=== PATIENT | male | born 1970 | race African-American/Black ===

== ENCOUNTER 2017-06-03 12:28 | Inpatient (IN) ==
[2017-06-03] MEDS ORDERED: ONDANSETRON 4 MG/2 ML VIAL IV STA (13:20)
[2017-06-03] MEDS ORDERED: SODIUM CHLORIDE 0.9% 1,000 ML IV STA (13:20)
[2017-06-03] MEDS ORDERED: ONDANSETRON 4 MG/2 ML VIAL ONE (13:27)
--- NOTE | 2017-06-03 13:30 | Emergency Department Note ---
Syd Cunningham Manpreet, am scribing for, and in the presence of, Naomie Ovalle DO 13: 24. Vasquez Cunningham Debra, DO, personally performed the services described in this documentation, ascribed by Scott Velarde in my presence, and it is both accurate and complete 329 . Arrival - Arrival Chief Complaint: Nausea/Vomiting/Diarrhea Stated Complaint: No BM. N/V. No food/liquid intake ED Nursing Triage Note: pt ambulatory to triage with c/o having n/v abd pain and constipation with dizziness/weakness. pt states onset was sunday. pt states last bm was sunday. pt states he hasnt been able to keep any fluids or food down. Mode of Arrival: Ambulatory Limitations: No Limitations Source: Patient Time Seen by Provider: 06/03/17 13:03 - History of Present Illness HPI Narrative: Pt is a 46 y/o male who presents to the ED with CC of N/V with constipation since 05/29/17. pt states he is unable to keep any liquids down since Sunday () and has been feeling weak and light headed. Pt also has not had any BM' s. Pt has tried OTC for the symptoms with no relief. Pt states "he feels like there is a lump in his throat and stomach." Pt denies any fever or chills. Pt does not have a PCP. No other pains/complaints reported to the ED. Onset (ago): day(s) (05/29/17) Consistency: constant, intermittent Severity: moderate Allergies/Adverse Reactions: Allergies Allergy/AdvReac Type Severity Reaction Status Date / Time No Known Allergies Allergy Unverified 06/03/17 12:50 Review of System - Review of System 12 point system: reviewed and no additional remarkable complaints except as stated - Review of System Constitutional: Present: weakness, other (Dizziness). Absent: chills, diaphoresis, fever Head/Ears/Nose/Throat: Absent: sore throat Respiratory: Absent: cough, respiratory distress, wheezing Cardiovascular: Absent: chest pain Gastrointestinal: Present: abdominal pain, nausea, vomiting, constipation Genitourinary male: Absent: dysuria Musculoskeletal: Absent: back pain, neck pain Neurological: Absent: headache, weakness Medical,Surgical,& Family Hx - Social History Smoking Status: Current every day smoker Frequency of Alcohol Use: None Type of Drug Use: None Exam Vital Signs: Vital Signs Temperature 98.2 F 06/03/17 12:56 Pulse Rate 71 06/03/17 14:00 Respiratory Rate 18 06/03/17 14:00 Blood Pressure 143/90 06/03/17 14:00 O2 Sat by Pulse Oximetry 100 06/03/17 14:00 - General General appearance: alert, other (Hiccups during exam) - Head Head exam: Present: atraumatic, normocephalic, normal inspection - Eye Eye exam: Present: normal appearance, PERRL, EOMI - ENT ENT exam: Present: normal exam, normal oropharynx, mucous membranes dry, TM's normal bilaterally - Neck Neck exam: Present: normal inspection, full ROM, trachea midline. Absent: tenderness - Chest Chest inspection: Present: normal inspection, symmetric chest wall rise. Absent : tenderness - Respiratory Respiratory exam: Present: normal lung sounds bilaterally. Absent: accessory muscle use, respiratory distress - Cardiovascular Cardiovascular exam: Present: regular rate, normal rhythm, normal heart sounds. Absent: murmur, rubs - Abdominal Exam Abdominal exam: Present: soft, normal bowel sounds. Absent: distention, tenderness, guarding, rebound - Extremities Exam Extremities exam: Present: normal inspection, full ROM. Absent: tenderness - Back Exam Back exam: Present: normal inspection, full ROM. Absent: tenderness - Neurological Exam Neurological exam: Present: alert, oriented X3, CN II-XII intact, reflexes normal - Psychiatric Psychiatric exam: Present: normal affect, normal mood - Skin Skin exam: Present: warm, dry, intact, normal color. Absent: pallor Course Course Narrative: Spoke with hospitalist regarding patient's sodium being 121. Patient has not tolerated any food or liquids since Sunday. Patient has 5 ketones in urine. Will admit for rehydration and antinausea medicine. Patient stable at this time Results - Labs CBC & BMP: 06/03/17 13:26 06/03/17 13:26 Lab Results: I have reviewed the patients labs Labs: Laboratory Tests 06/03/17 06/03/17 06/03/17 13:26 13:26 13:26 WBC 8.8 RBC 5.74 H Hgb 18.1 H Hct 48.9 MCV 85.2 L MCH 32 MCHC 37.0 H RDW 12.0 Plt Count 250 MPV 10.7 Neut % (Auto) 62.7 Lymph % (Auto) 21.8 [place] % (Auto) 13.9 H Eos % (Auto) 0.9 Baso % (Auto) 0.2 Neut # (Auto) 5.5 Lymph # (Auto) 1.9 [place] # (Auto) 1.2 H Eos # (Auto) 0.1 Baso # (Auto) 0.0 Immature Gran % 0.5 Nucleated RBC % 0.0 Immature Gran # 0.04 Nucleated RBCs # 0.00 Immature Plt Fraction 0.0 Sodium 121 L Potassium 3.5 Chloride 81 L Carbon Dioxide 33 H Anion Gap 10.5 BUN 27 H Creatinine 1.20 GFR Calculation 103 BUN/Creatinine Ratio 22.00 H Glucose 104 Calculated Osmolality 248.1 L Calcium 9.7 Total Bilirubin 1.20 H AST 18 ALT 17 Alkaline Phosphatase 91 Total Protein 8.7 H Albumin 4.3 Globulin 4.4 H Albumin/Globulin Ratio 0.9 L Lipase 179.0 Urine Color Yellow Urine Appearance Clear Urine pH 7.0 Ur Specific [place] 1.015 Urine Protein 30 Urine Glucose (UA) Negative Urine Ketones 5 Urine Blood Small Urine Nitrate Negative Urine Bilirubin Negative Urine Urobilinogen < 2.0 H Urine Leukocytes Negative Urine RBC 1 Urine WBC 3 Ur Squamous Epith Cells Occasional Urine Mucus Occasional Ur Culture Indicated? Not indicated Urine Opiates Screen Ur Barbiturates Screen Ur Phencyclidine Scrn U Amphetamine/Methamph U Benzodiazepines Scrn U Cocaine Metab Screen U Cannabinoids Screen 06/03/17 13:26 WBC RBC Hgb Hct MCV MCH MCHC RDW Plt Count MPV Neut % (Auto) Lymph % (Auto) [place] % (Auto) Eos % (Auto) Baso % (Auto) Neut # (Auto) Lymph # (Auto) [place] # (Auto) Eos # (Auto) Baso # (Auto) Immature Gran % Nucleated RBC % Immature Gran # Nucleated RBCs # Immature Plt Fraction Sodium Potassium Chloride Carbon Dioxide Anion Gap BUN Creatinine GFR Calculation BUN/Creatinine Ratio Glucose Calculated Osmolality Calcium Total Bilirubin AST ALT Alkaline Phosphatase Total Protein Albumin Globulin Albumin/Globulin Ratio Lipase Urine Color Urine Appearance Urine pH Ur Specific [place] Urine Protein Urine Glucose (UA) Urine Ketones Urine Blood Urine Nitrate Urine Bilirubin Urine Urobilinogen Urine Leukocytes Urine RBC Urine WBC Ur Squamous Epith Cells Urine Mucus Ur Culture Indicated? Urine Opiates Screen Negative Ur Barbiturates Screen Negative Ur Phencyclidine Scrn Negative U Amphetamine/Methamph Negative U Benzodiazepines Scrn Negative U Cocaine Metab Screen Negative U Cannabinoids Screen Positive H
[2017-06-03 13:43] LABS: Eosinophils # 0.1 10*3/uL (0.0-0.87); Eosinophils % 0.9 % (0.00-10.9); Mean Corpuscular Volume 85.2 FL (87-102)
[2017-06-03 14:01] LABS: Albumin 4.3 G/DL (3.4-5.0); Basophils % 0.2 % (0.0-0.8); Bilirubin,Total 1.2 MG/DL (0.2-1.0); Calcium 9.7 MG/DL (8.5-10.1); Hematocrit 48.9 VOL% (42.0-52.0); Immature Granulocytes % 0.5 %; Immature Granulocytes Absolute 0.04 #; Lymphocytes # 1.9 10*3/uL (1.4-4.0); Lymphocytes % 21.8 % (21.2-54.2); Mean Corpuscular Hemoglobin 32 PG (27-34); Mean Platelet Volume 10.7 FL (9.6-12.0); Monocytes # 1.2 10*3/uL (0.11-0.8); Monocytes % 13.9 % (1.7-12.7); Neutrophils # 5.5 10*3/uL (1.4-7.4); Neutrophils % 62.7 % (38.7-73.9); Osmolality,Calculated 248.1 MOS/KG (273-304); Platelet Count 250 T/CUMM (130-400); Potassium 3.5 MMOL/L (3.5-5.1); Red Blood Count 5.74 MC/CUMM (3.8-5.5); Total Protein 8.7 G/DL (6.4-8.3); White Blood Count 8.8 T/CUMM (4-12)
[2017-06-03 14:02] LABS: Apearance,Urine CLEAR (Clear); Bilirubin,Urine Negative (Negative); Blood, Urine Small mg/dL (Negative); Glucose,Urine (UA) Negative (Negative); Ketones,Urine 5 mg/dL (Negative); Mucus,Urine Occasional /LPF (Occasional); Nitrite,Urine Negative (Negative); Protein,Urine 30 MG/DL; RBC,Urine 1 /HPF (0-4); Squamous Epithelial Cell,Urine Occasional /HPF (0-10); Urine Color Yellow (Yellow); Urine Specific Gravity 1.015 (1.001-1.035); Urine Urobilinogen < 2.0 EU/DL (0.2-1.0); WBC,Urine 3 /HPF (0-6)
[2017-06-03 14:04] LABS: Hemoglobin 18.1 GM/DL (14.0-18.0)
[2017-06-03 14:11] LABS: Barbiturates Screen,Urine Negative (Negative); Benzodiazepines Screen,Urine Negative (Negative); Cannabinoid Screen,Urine Positive (Negative); Opiate Screen,Urine Negative (Negative); Phencyclidine Screen,Urine Negative (Negative)
[2017-06-03] MEDS ORDERED: METOCLOPRAMIDE 10 MG/2 ML VIAL IV STA (14:11)
[2017-06-03] MEDS ORDERED: METOCLOPRAMIDE 10 MG/2 ML VIAL ONE (14:21)
--- NOTE | 2017-06-03 15:31 | Hospitalist History & Physical ---
Assessment and Plan (1) Hyponatremia Status: Acute Assessment and plan: Na 121. Admit to med surg. Stat EKG. NS @ 150 ml/hr. Cardiac monitoring/neuro checks. Routine vitals. Recheck labs in am. Urine studies Current Visit: Yes History of Present Illness Chief complaint: Nausea/vomiting History of present illness: Mr. Heller is a 46 year old black male with no known medical history that presented to the ED today for further evaluation of nausea and vomiting. Pt.'s family present at the bedside. Patient states that he has had continuous nausea and vomiting since Sunday. Patient states that he has not been since Sunday. Patient denies chest pain, fever, or diarrhea. Patient does report shortness of breath on exertion, lightheadedness, blurred vision (since yesterday), and mild abdominal pain. He also reports "just not feeling right". Pt. states that on Sunday he did consume marijuana but he doesn't recall if the symptoms started before or after consumption. Pt. also states he tried some chicken from a local gas station. Pt. denies any other symptoms in the ED at this time. Labs taken in the ED revealed a NA of 121, bun 27, creatinine 1.20. Pt. will be admitted for further evaluation and treatment. Allergies Allergy/AdvReac Type Severity Reaction Status Date / Time No Known Allergies Allergy Unverified 06/03/17 12:50 Medical,Surgical,& Family Hx - Social History Smoking Status: Current every day smoker Frequency of Alcohol Use: None Type of Drug Use: None Marital Status: Single Lives With:: Parent Functional capacity: independent ambulation - Constitutional Constitutional: Present: chills. Absent: fever(s), night sweats - EENT Eyes: Present: blurry vision Ears: Absent: decreased hearing Nose, mouth and throat: Absent: headache(s) - Cardiovascular Cardiovascular: Present: dyspnea on exertion. Absent: chest pain at rest, edema - Respiratory Respiratory: Absent: cough - Gastrointestinal Gastrointestinal: Present: abdominal pain, nausea, vomiting - Genitourinary Genitourinary: Absent: difficulty urinating - Musculoskeletal Musculoskeletal: Absent: back pain - Neurological Neurological: Present: dizziness. Absent: confusion - Hematologic/Lymphatic Hematologic/Lymphatic: Absent: easy bleeding Exam - Constitutional Vitals: Period Temp Pulse Resp BP Sys/[place]atum Pulse Ox Last 24 Hr 98.2 F-98.2 F 71-96 16-18 102-147/77-102 99-100 General appearance: normal weight, no acute distress - Head Head exam: Present: normal inspection, normocephalic - Eye Eye exam: Present: EOMI. Absent: scleral icterus Pupils: Present: ERIKA - Respiratory Respiratory exam: Present: clear to auscultation bilaterally. Absent: wheezes - Cardiovascular Cardiovascular exam: Present: tachycardia - GI/Abdominal GI/Abdominal exam: Present: normal bowel sounds, soft. Absent: tenderness - Extremities Exam Extremities exam: Present: normal capillary refill, full ROM, edema - Neurological Exam Neurological exam: Present: alert, oriented X3 - Psychiatric Psychiatric exam: Present: normal affect, normal mood - Skin Skin exam: Present: normal color, warm, dry Results - Labs CBC & BMP: 06/03/17 13:26 06/03/17 13:26 Lab Results: I have reviewed the past 24 hour labs
[2017-06-03] MEDS ORDERED: ACETAMINOPHEN 325 MG TABLET PO PRN (16:02)
[2017-06-03] MEDS ORDERED: ONDANSETRON 4 MG/2 ML VIAL IV PRN (16:02)
--- NOTE | 2017-06-03 16:24 | EKG Report ---
Stationary ECG Study [facility] Test Date: 06/03/2017 4:25:27 PM Pat Name: LIAN MCKEON Department: Room: 426 Gender: M Certified Diabetes Educator: RENATE : 1970 Requested by: Rocco Schuster Order Number: [id number] Reading MD: ROBERTO PEDERSON Intervals [place] Rate: 67 P: 85 [place]: 133 QRS: 81 QRSD: 94 T: 57 QT: 415 QTc: 430 Interpretive Statements SINUS RHYTHM RIGHT ATRIAL ENLARGEMENT Electronically Signed On 06-04-17 13:36:15 CDT by ROBERTO PEDERSON [email or web address]
[2017-06-03] MEDS: SODIUM CHLORIDE 0.9% 1,000 ML IV SCH ×2 (16:41→23:01)
[2017-06-03] MEDS: ENOXAPARIN 40 MG/0.4 ML SYRINGE SUBCUT SCH (16:41)
--- NOTE | 2017-06-03 17:18 | XRay Report ---
Exam: XR KUB Date: 06/03/2017 4:47 PM Indication: Nausea and vomiting Comparison: None Technical: 2 views Findings: Lung bases unremarkable. The liver shadow is intact The spleen and renal shadows are partially obscured. Moderate fecal debris in the right colon. Vascular plaque present in the iliac vessels. Nonspecific GI pattern otherwise noted without pneumoperitoneum Bony structures are intact Impression: 1.Moderate fecal debris right colon 2.Vascular calcifications PROCEDURE INTERPRETED AT [facility] DEPARTMENT OF RADIOLOGY Final Report Signed by: Dr. Bertram Valerio
[2017-06-04 05:57] LABS: Basophils % 0.1 % (0.0-0.8); Eosinophils # 0.1 10*3/uL (0.0-0.87); Hematocrit 42.8 VOL% (42.0-52.0); Immature Granulocytes % 0.3 %; Immature Granulocytes Absolute 0.02 #; Lymphocytes # 2.5 10*3/uL (1.4-4.0); Lymphocytes % 32.3 % (21.2-54.2); Mean Corpuscular HGB Conc 35.5 GM/DL (32-36); Mean Corpuscular Hemoglobin 31 PG (27-34); Mean Corpuscular Volume 87.9 FL (87-102); Mean Platelet Volume 10.6 FL (9.6-12.0); Monocytes # 1.3 10*3/uL (0.11-0.8); Neutrophils # 3.9 10*3/uL (1.4-7.4); Neutrophils % 50.3 % (38.7-73.9); Platelet Count 207 T/CUMM (130-400); Red Blood Count 4.87 MC/CUMM (3.8-5.5); White Blood Count 7.8 T/CUMM (4-12)
[2017-06-04 06:09] LABS: Hemoglobin 15.2 GM/DL (14.0-18.0)
[2017-06-04 06:23] LABS: Eosinophils 1 % (0-10); Giant Platelets Few; Hypochromasia 1+; Lymphocytes 35 % (20-55); Ovalocytes Slight; Platelet Estimate Adequate; Segmented Neutrophils 45 % (50-85); Total Cells Counted 100
[2017-06-04 06:40] LABS: Calcium 8.3 MG/DL (8.5-10.1); Osmolality,Calculated 255.2 MOS/KG (273-304); Potassium 3.9 MMOL/L (3.5-5.1); Risk Ratio 6.8; Thyroid Stimulating Hormone 1.78 uIU/ml (0.358-3.74); VLDL CHOLESTEROL 14.6 MG/DL
[2017-06-04] MEDS: SODIUM CHLORIDE 0.9% 1,000 ML IV SCH ×4 (07:38→20:00)
[2017-06-04] MEDS: PANTOPRAZOLE 40 MG TABLET PO SCH (08:18)
[2017-06-04] MEDS: DOCUSATE SODIUM 100 MG CAPSULE PO SCH ×2 (10:55→20:21)
[2017-06-04] MEDS: LACTULOSE 20 GM/30 ML UDCUP PO SCH ×2 (15:21→20:21)
[2017-06-04] MEDS: ENOXAPARIN 40 MG/0.4 ML SYRINGE SUBCUT SCH (15:21)
--- NOTE | 2017-06-04 16:02 | Hospitalist Progress Note ---
Hospitalist: Subjective Interval history: 46-year-old -[place] male admitted with dehydration hyponatremia as well as severe constipation. Still has constipation. Exam - Constitutional Vitals: Period Temp Pulse Resp BP Sys/[place]atum Pulse Ox Last 24 Hr 97.4 F-99.3 F 65-70 16-20 134-149/75-91 97-100 Exam: General: No Acute Distress HEENT: Normocephalic, atraumatic, Extra ocular movements intact Neck: Supple, No JVD Chest: Clear to auscultation B/L CV: S1 + S2 audible without murmur, gallop or rub Abd: soft, NT, Non-distended, BS + Ext: No edema Skin: No purpura, bruising or rash Rheumatologic: No Joint deformities Neurologic: Strength 5/5 all extremities, no gross sensory deficits Results - Labs CBC & BMP: 06/04/17 04:55 06/04/17 04:55 - Impressions Assessment and Plan: Hyponatremia Status: Acute Assessment and plan: This was due to dehydration, improved with normal saline, continue to monitor sodium level Current Visit: Yes Severe constipation Status: Acute Assessment and plan: He has been started on bowel regimen, monitor for response. If no response will consider an enema. Current Visit: Yes Nausea and vomiting Status: Acute Assessment and plan: It was likely from gastritis with constipation contributing. This has resolved and he has been started on diet Current Visit: Yes
[2017-06-04] MEDS: POLYETHYLENE GLYCOL POWDER 17 GM PACK PO SCH (20:20)
[2017-06-05] MEDS: SODIUM CHLORIDE 0.9% 1,000 ML IV SCH ×2 (02:43→08:26)
[2017-06-05 07:06] LABS: Basophils % 0.6 % (0.0-0.8); Eosinophils # 0.1 10*3/uL (0.0-0.87); Eosinophils % 1.9 % (0.00-10.9); Hematocrit 40.7 VOL% (42.0-52.0); Hemoglobin 14.3 GM/DL (14.0-18.0); Immature Granulocytes % 0.3 %; Immature Granulocytes Absolute 0.02 #; Lymphocytes # 2.6 10*3/uL (1.4-4.0); Lymphocytes % 40.9 % (21.2-54.2); Mean Corpuscular HGB Conc 35.1 GM/DL (32-36); Mean Corpuscular Hemoglobin 32 PG (27-34); Mean Corpuscular Volume 90.6 FL (87-102); Mean Platelet Volume 10.2 FL (9.6-12.0); Monocytes # 0.8 10*3/uL (0.11-0.8); Monocytes % 11.8 % (1.7-12.7); Neutrophils # 2.8 10*3/uL (1.4-7.4); Neutrophils % 44.5 % (38.7-73.9); Platelet Count 192 T/CUMM (130-400); Red Blood Count 4.49 MC/CUMM (3.8-5.5); Red Cell Distribution Width 12.2 % (9.3-17.3); White Blood Count 6.4 T/CUMM (4-12)
[2017-06-05 07:39] LABS: Calcium 8.6 MG/DL (8.5-10.1); Osmolality,Calculated 265.4 MOS/KG (273-304); Potassium 4.8 MMOL/L (3.5-5.1)
[2017-06-05 07:46] VITALS: BP 143/86
[2017-06-05] MEDS: DOCUSATE SODIUM 100 MG CAPSULE PO SCH (08:26)
[2017-06-05] MEDS: PANTOPRAZOLE 40 MG TABLET PO SCH (08:26)
[2017-06-05] MEDS: POLYETHYLENE GLYCOL POWDER 17 GM PACK PO SCH (08:27)
[2017-06-05] MEDS: LACTULOSE 20 GM/30 ML UDCUP PO SCH (08:27)
--- NOTE | 2017-06-05 10:25 | Discharge Summary ---
<Rocco Schuster - Last Filed: 06/05/17 09:28> Hospital Course - Hospital Course Hospital Course: Mr. Heller is a 46 year old black male with no known medical history that presented to the ED on 06/03 for further evaluation of nausea and vomiting. Pt.' s family present at the bedside. Patient reported continuous nausea and vomiting since 05/29. Patient states that he has not been since 05/30. Patient does report shortness of breath on exertion, lightheadedness, blurred vision, and mild abdominal pain. He reported "just not feeling right". Pt. states that he did consume marijuana but he doesn't recall if the symptoms started before or after consumption. Pt. also states he tried some chicken from a local gas station. Pt. denied any other symptoms. Labs taken in the ED revealed a NA of 121, bun 27, creatinine 1.20. Pt. was admitted for further evaluation and treatment. Pt. received IV hydration to correct sodium. During the patient's stay, he also complained of severe constipation for which he received Miralax. Pt's vital signs are stable today. Nausea and vomiting have resolved. Na is 133 today. Pt. stable for discharge home. The patient was educated regarding constipation and the use of fiber products including Metamucil to avoid further bouts. We also discussed aggressive fluid hydration. Diagnosis - Discharge Diagnosis (1) Hyponatremia Status: Acute Discharge Plan - Discharge Data Disposition: Disch To Home/Self Care - Discharge Medications New Docusate Sodium Cap [Colace Cap] 100 mg PO BID capsule Psyllium Husk/Aspartame [Metamucil Powder] 174 gm PO DAILY #1 bottle - Follow Up or Referral - Forms/Instructions Exam - Constitutional Vitals: Period Temp Pulse Resp BP Sys/[place]atum Pulse Ox Last 24 Hr 96.6 F-98.7 F 60-70 18-20 115-143/57-86 97-100 Discharge Results Labs on day of discharge: Labs from last 24 hours 06/05/17 06/05/17 06:54 06:54 WBC 6.4 RBC 4.49 Hgb 14.3 Hct 40.7 L MCV 90.6 MCH 32 MCHC 35.1 RDW 12.2 Plt Count 192 MPV 10.2 Neut % (Auto) 44.5 Lymph % (Auto) 40.9 [place] % (Auto) 11.8 Eos % (Auto) 1.9 Baso % (Auto) 0.6 Neut # (Auto) 2.8 Lymph # (Auto) 2.6 [place] # (Auto) 0.8 Eos # (Auto) 0.1 Baso # (Auto) 0.0 Immature Gran % 0.3 Nucleated RBC % 0.0 Immature Gran # 0.02 Nucleated RBCs # 0.00 Immature Plt Fraction 0.0 Sodium 133 L Potassium 4.8 Chloride 100 Carbon Dioxide 26 Anion Gap 11.8 BUN 13 Creatinine 0.80 GFR Calculation 143 BUN/Creatinine Ratio 16.00 Glucose 103 Calculated Osmolality 265.4 L Calcium 8.6 DS: Provider Date of admission: 06/03/17 14:32 Primary care physician: . No PCP Attending physician on admission: Prieto Neal MD Consults: 06/03/17 16:15 Consult to Dietitian [CONS] Routine Reason for Dietitian: Other Consult Comment: has lost 30 pounds since . Discharging clinician: Rocco Schuster NP <Diana Hand - Last Filed: 06/05/17 11:40> Hospital Course - Time spent with patient Time with patient DS: Greater than 30 minutes (Total discharge time for this patient, including [id number] time, clinical documentation, medication reconciliation, and discharge planning was 31 minutes.) Diagnosis - Discharge Diagnosis (1) Constipation Status: Resolved (2) Dehydration Status: Resolved (3) Hyponatremia Status: Resolved Discharge Plan - Discharge Data Condition at Discharge: Stable Discharge Diet: advance to your usual diet Activity: resume usual activities as tolerated Hygiene: no restrictions Weight Bearing at Discharge: full weight bearing Driving: no restrictions Contact your physician if you experience:: fever over 101, pain uncontrolled by pain medications DS: Provider Expected date of discharge: 06/05/17
== END 2017-06-05 12:02 | disposition home or self-care (01) | DRG 641 ==
LOC: N.ED 12:28 → SUATTDRO 14:32 → N.EDINP 14:32 → N.4E 15:57
PROVIDERS: ADMIT Hospitalist; ATTEND Family Medicine